=== PATIENT | male | born 1945 | race Caucasian/White ===

== ENCOUNTER → 2021-09-27 | Day surgery (SDC) | payer OTHER ==
[2021-09-25 10:14] LABS: Basophils # (auto) 0.1 10 ^3/uL (0-0.2); Basophils % (auto) 1.3 % (0.0-2.0); Eosinophils # (auto) 0.2 10 ^3/uL (0-0.8); Eosinophils % (auto) 3.1 % (0.0-7.0); Hematocrit 44.4 % (41.0-53.0); Hemoglobin 15.1 g/dL (13.5-17.5); Lymphocytes # (auto) 1.6 10 ^3/uL (0.4-5.4); Lymphocytes % (auto) 20.7 % (10.0-50.0); Mean Corpuscular Hemoglobin 30.6 pg (28.0-32.0); Mean Corpuscular Volume 89.9 fL (80.0-100.0); Monocytes # (auto) 0.6 10 ^3/uL (0-1.3); Monocytes % (auto) 8.2 % (0.0-12.0); Neutrophils # (auto) 5.3 10 ^3/uL (1.6-8.6); Neutrophils % (auto) 66.7 % (37.0-80.0); Nucleated Red Blood Cells % 0.1 %; Red Blood Cells 4.94 10^6/uL (4.5-5.90); Red Cell Distribution Width 13.3 % (11.8-14.3); White Blood Cell 7.9 10^3/uL (4.4-10.8)
[2021-09-25 11:07] LABS: Albumin 3.4 g/dL (3.4-5.0); BUN/Creatinine Ratio 18.6; Bilirubin, Total 0.5 mg/dL (0.2-1.0); Calcium 9.3 mg/dL (8.5-10.1); Total Protein 8.2 g/dL (6.4-8.2)
[2021-09-25 11:09] LABS: INR 1.02 (0.9-1.15); Partial Thromboplastin Time 27.3 sec (23.6-33.0)
[~2021-09-27] VITALS: Ht 185.4 cm; Wt 77.1 kg
[~2021-09-27] MED LIST: AMLO-496 PO; ASCO500T11 PO; CALC667C5 PO; CHOL100055 PO; CHOL20007 OR; FEXO-42 PO; HYDR12.56 PO; LISI40TA11 PO; MISC1CAP7 PO; NAPR-505 PO; OMEG306C OR; SODIUM CHLORIDE LOCK 10 ML ONE; [UNRECOGNIZED DRUG - CODE] OR; fentaNYL CITRATE 100 MCG/2 ML VL ONE
[2021-09-27] MEDS: diphenhdrAMINE HCL 50 MG/1 ML VL ONE ×2 (14:52→14:56)
[2021-09-27] MEDS: MIDAZOLAM HCL 5 MG/ML-1ML VIAL ONE ×4 (14:52→15:07)
[2021-09-27] MEDS: fentaNYL CITRATE 100 MCG/2 ML VL ONE ×3 (14:52→14:59)
[2021-09-27 16:20] VITALS: BP 97/56
== END | disposition home or self-care (01) ==
LOC: GI 13:47
PROVIDERS: ATTEND Internal Medicine Gastroenterology
DX: R19.5 Other fecal abnormalities (principal); K63.5 Polyp of colon; K57.30 Diverticulosis of large intestine without perforation or abscess without bleeding; K63.89 Other specified diseases of intestine; K64.8 Other hemorrhoids; I10 Essential (primary) hypertension; F17.200 Nicotine dependence, unspecified, uncomplicated; Z98.890 Other specified postprocedural states; Z20.822 Contact with and (suspected) exposure to COVID-19; Z96.611 Presence of right artificial shoulder joint; Z79.899 Other long term (current) drug therapy
CPT/HCPCS: 36415; 45380; 80053; 85025; 85610; 85730; 88305; J1200; J2250; J3010; J7030; U0003; 99152; 99153